=== PATIENT | female | born 1935 | race African-American/Black ===

== ENCOUNTER 2016-09-26 14:38 | Emergency (ER) | payer OTHER ==
[~2016-09-26] VITALS: Ht 162.6 cm; Wt 72.6 kg
--- NOTE | ~2016-09-26 | EKG ---
[place] [address] [address] [facility] [place] [address] ELECTROCARDIOGRAM REPORT Name: DHARMESH HENRIQUEZ [id number] Admission: 09/26/16 Attend Phys: Discharge: 09/26/16 Date of : 34 Report #: [id number] THIS REPORT FOR: //name// [facility] ED Test Date: 2016-09-26 Test Time: 15:25:46 Pat Name: DHARMESH HENRIQUEZ Department: Room: Gender: F Order Dispatcher Chief: MZOOK : 1935 Requested By: Fabiana Nava Order Number: [id number] MD: Iker Fam Measurements Intervals Whitney Rate: 71 P: 65 AL: 180 QRS: -3 QRSD: 106 T: 46 QT: 414 QTc: 450 Interpretive Statements Sinus rhythm Probable left atrial enlargement Low voltage, precordial leads Abnormal R-wave progression, early transition Left ventricular hypertrophy Artifact in lead(s) I,III,aVR,aVL,aVF Compared to ECG 12/22/2013 10:54:28 Low QRS voltage now present Left ventricular hypertrophy now present Electronically Signed On 10-01-2016 8:04:58 CDT by Iker Fam [email or web address] <ELECTRONICALLY SIGNED> By: Iker Fam MD 10/01/16 0804 1525 1525 Iker Fam MD /EPI
[~2016-09-26 14:38] MED LIST: AMLODIPINE BESYL5 MG PO; APAP500 PO; ASPIRIN81 M2 PO; ATIVAN0.5 MG PO; AUGMENTIN 875875 M1 PO; BABY OIL OTIC; BACTRIM DS TAB1 EACH PO; BAYER CHEWABLE81 MG PO; BETADINE30 ML; CELEBREX 200 M200 M1 PO; CELEBREX 200 M200 MG PO; CENTRUM SILVER1 EAC5 PO; CIPROFLOXACIN500 M1 PO; CLARITHROMYCIN250 M2 PO; CLARITIN10 MG PO; COLACE100 MG PO; CONSTULOSE10 GM/152 PO; COZAAR100 MG PO; DIFLUCAN PO; DIFLUCAN10 MG/ML PO; DIFLUCAN100 MG PO; DIFLUCAN150 MG PO; DITROPAN XL10 M1 PO; DOXYCYCLINE 10100 M1 PO; DOXYCYCLINE 10100 MG PO; FERROUS SULFAT325 M1 PO; FLEXERIL PO; GALZIN25 MG PO; GLUCAGEN1 M2 SUBQ; GLUMETZA1000 PO; HYDROCHLOROTH12.5 MG PO; HYDROCODON-ACE1 EAC5 PO; HYDROXYCHLOROQ200 M1 PO; HYZAAR 100-251 EACH PO; IRON325 PO; JANUVIA100 MG PO; JUVEN PACKET1 EACH PO; KEFLEX500 MG PO; LANTUS SUBQ; LORAZEPAM 0.50.5 MG PO; MIRALAX17 GM PO; MOBIC7.5 MG PO; MULTIVITAMINS PO; NEURONTIN 300300 M1 PO; NORVASC 5 MG TAB5 MG PO; NORVASC2.5 MG PO; NOVOLOG100 UNIT/1; NOVOLOG100 UNIT/1 SQ; NYSTATIN1 EA10; OMEPRAZOLE40 MG PO; ORAZINC220 MG PO; OXYCONTIN10 M1 PO; PHENERGAN 25 MG25 M1 PO; PREDNISONE 10 M10 M1 PO; PREDNISONE 5 MG5 M1 PO; PRENATAL PO; PROBIOTIC1 EAC2 PO; PROTONIX40 M2 PO; REMEDY CALAZIM113 GM; REMERON15 MG PO; SENNA CONCENTR8.6 MG PO; SULFASALAZINE500 M4 PO; SULFASALAZINE500 M5 PO; SULFAZINE EC500 MG PO; TOPROL XL50 MG PO; TRAMADOL HCL50 MG PO; TYLENOL325 MG PO; ULTRAM 50MG TAB50 MG PO; VANCOMYCIN HCL 11 G2 IVPB; VITAMINC500 PO; VOL-NATE TABLE1 EACH PO; ZANTAC 150MG T150 MG PO; ZINC GLUCONATE100 MG PO
[2016-09-26 15:12] LABS: ABSOLUTE NEUTROPHILS 5.3 thou/uL (1.4-8.2); BASOPHILS 0.6 % (0.0-2.0); HEMATOCRIT 43.8 % (37.0-47.0); HEMOGLOBIN 13.9 gm/dL (12.0-15.0); LYMPHOCYTES 17.8 % (24.0-44.0); MCH 25.6 pg (26.0-34.0); MCHC 31.8 g/dL (28.0-37.0); MCV 80.4 fL (80.0-100.0); MONOCYTES 8.1 % (1.0-8.0); PLATELET COUNT 185 thou/uL (150-400); POLYS 72.5 % (36.0-66.0); RBC 5.45 mil/uL (4.20-5.00); RDW 18.8 % (10.5-14.5); WBC 7.3 thou/uL (4.0-11.0)
[2016-09-26 15:13] LABS: MANUAL DIFF NO; URINE BILIRUBIN NEGATIVE (Negative); URINE BLOOD 1+ (Negative); URINE COLOR YELLOW; URINE GLUCOSE-RANDOM* NEGATIVE (Negative); URINE KETONES NEGATIVE (Negative); URINE NITRITE NEGATIVE (Negative); URINE PROTEIN (DIPSTICK) 2+ (Negative); URINE SPECIFIC GRAVITY 1.025 (1.003-1.035); URINE UROBILINOGEN 0.2 E.U./dl (0.2-1.0)
[2016-09-26 15:20] LABS: ANION GAP 8 mmol/L (7-16); BUN 27 mg/dL (7-18); CALCIUM 9.6 mg/dL (8.5-10.1); CHLORIDE 104 mmol/L (98-107); CO2 25 mmol/L (21-32); GLUCOSE 117 mg/dL (74-106); POTASSIUM 5.2 mmol/L (3.5-5.1); SODIUM 137 mmol/L (136-145)
[2016-09-26 15:24] LABS: SQUAMOUS 0-3 Few /LPF (0-3)
[2016-09-26 15:26] LABS: CASTS None Seen /LPF (None Seen); URINE WBC >25 Many /HPF (0-5)
[2016-09-26 15:27] LABS: ALBUMIN 3.2 g/dL (3.4-5.0); ALKALINE PHOSPHATASE 102 U/L (46-116); AMORPHOUS PHOSPHATES Many /LPF (None Seen); BACTERIA >30 Many /HPF (None Seen); SGOT 36 U/L (15-37); SGPT 39 U/L (30-65); TOTAL BILIRUBIN 0.5 mg/dL (<0.1-1.0); TOTAL PROTEIN 6.5 g/dL (6.4-8.2); TROPONIN-I < 0.04 ng/mL (<0.04-0.07)
[2016-09-26] MEDS ORDERED: PREDNISONE 5 MG5 M1 PO (16:07)
[2016-09-26] MEDS ORDERED: NORCO 5-325 TA1 EACH PO (16:14)
[2016-09-26] MEDS ORDERED: KEFLEX500 MG PO (16:30)
== END 2016-09-26 18:20 | disposition home or self-care (01) ==
LOC: ER 14:38
PROVIDERS: Nurse Practitioner Family
DX: R11.2 Nausea with vomiting, unspecified (principal); N39.0 Urinary tract infection, site not specified; M06.9 Rheumatoid arthritis, unspecified; I10 Essential (primary) hypertension; K21.9 Gastro-esophageal reflux disease without esophagitis; E11.8 Type 2 diabetes mellitus with unspecified complications; Z79.4 Long term (current) use of insulin; Z86.718 Personal history of other venous thrombosis and embolism; Z87.01 Personal history of pneumonia (recurrent); Z96.651 Presence of right artificial knee joint; Z98.890 Other specified postprocedural states

== ENCOUNTER 2017-07-03 05:25 | Observation (INO) | payer OTHER ==
[~2017-07-03] VITALS: Ht 157.5 cm; Wt 54.4 kg
--- NOTE | ~2017-07-03 | O ---
[facility] [place] [address] OPERATIVE REPORT Name: DHARMESH HENRIQUEZ Room #: 428-P [facility] Matilde Claros#: [id number] Admission: 07/03/17 Attend Phys: Logan Cassidy MD Discharge: 07/04/17 Date of : 34 Report #: [id number] THIS REPORT FOR: //name// CC: Kendall Cassidy DATE OF SERVICE: 07/03/2017 PREOPERATIVE DIAGNOSIS: Left second and third toe gangrene. POSTOPERATIVE DIAGNOSIS: Left second and third toe gangrene. PROCEDURE: Left second and third toe amputation. SURGEON: Logan Cassidy MD. FIG WASHER: Janay Cha PA-C. ANESTHESIA: LMA. ESTIMATED BLOOD LOSS: 25 mL. COMPLICATIONS: None. SPECIMENS: The second and third toe were sent to pathology. CONDITION UPON LEAVING THE OPERATING ROOM: Stable. INDICATIONS FOR PROCEDURE: The patient is an 82-year-old female who has had gangrenous changes of her left second and third toes. She has already had a previous fourth and fifth toe amputation and after discussion with her and wound care, the recommendation is for second and third toe amputation. DESCRIPTION OF PROCEDURE: Risks, benefits, alternatives, complications were discussed in detail with the patient including but not limited to risk of anesthesia, risk of damage to nerves, arteries, blood vessels, risk for infection, bleeding, risk for further infection and need for higher level amputation. Informed consent was obtained from the patient. Left foot was appropriately marked in the preoperative holding area. She was brought to the operating room and a general endotracheal anesthesia was induced. Left lower extremity was prepped and draped in normal sterile fashion. Timeout was performed properly identifying the patient and procedure as well as the instrumentation. All in the operating room were in agreement. An incision circumferentially around the base of the second and third toe was then made with a 10 blade through the skin down to the bone itself. Bone was then dissected out from the surrounding tissues with 15 blade and the second and third toe [address] [address] OPERATIVE REPORT Name: DHARMESH HENRIQUEZ Room #: 428-P [facility] Matilde Claros#: [id number] Admission: 07/03/17 Attend Phys: Logan Cassidy MD Discharge: 07/04/17 Date of : 34 Report #: [id number] including the proximal phalanx were removed at the DIP joints. This was then thoroughly irrigated with normal saline. Skin was closed with 3-0 nylon. Soft dressing of Adaptic, 4 x 4, Webril, Nathan wrap were applied. The patient tolerated this procedure well and went to the recovery room under the care of anesthesia postoperatively. <ELECTRONICALLY SIGNED> By: Logan Cassidy MD 07/11/17 0735 1322 1355 Logan Cassidy MD /nt
--- NOTE | ~2017-07-03 | S ---
[facility] [place] [address] SURGICAL PATH RPT PROCEDURE Name: DHARMESH HENRIQUEZ Room #: 428-P [facility] Matilde Claros#: [id number] Admission: 07/03/17 Date of : 34 Discharge: 07/04/17 Report #: [id number] Path Case #: [id number] PATHOLOGY REPORT COLLECTION DATE: 07/03/2017 RECEIVED DATE: 07/03/2017 SUBMITTING PHYS: Dr. Logan Cassidy OTHER PHYS: Dr.Mark Miller SPECIMEN(S) RECEIVED: A.Left second and third toes * * * * * * * * * * * * FINAL DIAGNOSIS: Left second and third toes, amputation: - Ulceration along with marked acute inflammation extending into underlying bone associated with acute osteomyelitis, as well as bone destruction. - Bone margins showing unremarkable and viable bone. (IUV:suzy; 07/05/2017) PATHOLOGIST: Yi Villar M.D. REPORT ELECTRONICALLY SIGNED BY: Yi Villar M.D. DATE/TIME: 07/05/2017 14:05 * * * * * * * * * * * * GROSS PATHOLOGY: Received in formalin labeled "Dharmesh Henriquez, left second and third toes," are two toe amputation specimens measuring 4.8 x 2.6 x 1.8 cm and 4.9 x 2.0 x 1.7 cm in greatest dimensions. Both specimens display a smooth and concave proximal bone margin, consistent with disarticulation. Both specimens also display a nail in the nailbed that is partially opaque and yellow-singh in appearance. The larger specimen displays a well-circumscribed, ulcerative and dark singh-brown lesion on the dorsal aspect measuring 1.7 x 1.1 cm that extends to within 0.8 cm of the soft tissue margin; the bone and soft tissue margins are inked black. A full-thickness cross section is submitted proximal to distal in cassettes A1 through A3 following decalcification. The smaller specimen displays a well-circumscribed, ulcerated and singh-brown lesion on the lateral aspect measuring 0.7 x 0.4 cm that extends to within 1.2 cm of the soft tissue margin; the bone and soft tissue margins are inked red. A full-thickness cross section is submitted proximal to distal in cassettes A4 and A5 following decalcification, with sales representative marine supplies tissue from the ulcerative lesion submitted in cassette A6. ([facility]; 07/04/2017) [facility] [place] [address] SURGICAL PATH RPT PROCEDURE Name: DHARMESH HENRIQUEZ Room #: 428-P [facility] Matilde Claros#: [id number] Admission: 07/03/17 Date of : 34 Discharge: 07/04/17 Report #: [id number] Path Case #: [id number] CLINICAL HISTORY: Gangrene left foot INITIAL CPT CODE(S): A; 19452, 63290 Professional services performed by [facility] at [facility] [address] [place] [address] Technical services performed by [facility] at [address] [place] [address], [address], [place] [address]. [facility] [address] [place] [address] PHONE: [phone] DIRECTOR: Yannick Guevara M.D. * * * END OF REPORT * * *
[~2017-07-03 05:25] MED LIST changes: +CALMOSEPTINE O3.5 GM TOP; +DITROPAN XL5 M1 PO; +LIORESAL 10 MG10 MG PO; +METFORMIN HCL500 MG PO; +NORCO 5-325 TA1 EACH PO; -NOVOLOG100 UNIT/1; +NOVOLOG100 UNIT/1 SUBQ; -REMEDY CALAZIM113 GM; +[UNRECOGNIZED DRUG - OTHER] TOP
[2017-07-03 11:15] LABS: CALCIUM 9.3 mg/dL (8.5-10.1); CREATININE 0.9 mg/dL (0.6-1.0)
[2017-07-03 11:30] VITALS: BP 175/89
[2017-07-03 15:45] VITALS: BP 116/85
[2017-07-03 15:49] VITALS: BP 116/85
[2017-07-03 21:00] VITALS: BP 140/62
[2017-07-04 04:30] VITALS: BP 129/54
[2017-07-04 07:18] VITALS: BP 156/115
[2018-01-27] MEDS ORDERED: FLUCONAZOLE 10100 MG PO (23:41)
[2018-01-27] MEDS ORDERED: FIRVANQ50 MG/1 ML PO (23:41)
[2018-01-27] MEDS ORDERED: BACLOFEN 10 MG Table PO (23:42)
[2018-01-27] MEDS ORDERED: ENOXAPARIN40 MG/0.1 SUBQ (23:42)
[2018-01-27] MEDS ORDERED: METOPROLOL SUCC50 MG PO (23:42)
[2018-01-27] MEDS ORDERED: AMLODIPINE BESYLATE PO (23:43)
[2018-01-27] MEDS ORDERED: TRAMADOL 50 MG PO (23:43)
[2018-01-27] MEDS ORDERED: REMERON 15 MG PO (23:44)
[2018-01-27] MEDS ORDERED: HYDROCODONE APAP PO (23:44)
[2018-01-27] MEDS ORDERED: Tylenol 325MG Caplet PO (23:44)
[2018-01-27] MEDS ORDERED: DEXTROSE 500.5 GM/M1 IV PUSH ×2 (23:45→23:46)
[2018-01-27] MEDS ORDERED: FLUSH IV PUSH (23:45)
[2018-01-27] MEDS ORDERED: GLUCOSE4 GM PO (23:46)
[2018-01-27] MEDS ORDERED: GLUTOSE GEL 1515 G1 PO (23:46)
[2018-01-27] MEDS ORDERED: FLORANEX GRANU1 EACH PO (23:47)
[2018-01-27] MEDS ORDERED: SENNA8.6 MG PO (23:47)
[2018-01-27] MEDS ORDERED: Prednisone 5 MG TAB PO (23:47)
[2018-01-27] MEDS ORDERED: PEPCID20 MG PO (23:47)
[2018-01-27] MEDS ORDERED: METFORMIN 500 MG PO (23:48)
[2018-01-27] MEDS ORDERED: NOVOLOG100 UNIT/1 SUBQ (23:48)
[2018-01-27] MEDS ORDERED: GLUCAGEN1 MG/1 ML SUBQ (23:48)
[2018-01-27] MEDS ORDERED: CERTAGEN SENIOR PO (23:49)
== END 2017-07-04 13:00 ==
LOC: 4E 05:25 → TBA 05:25 → PRE 11:41 → 4E 15:35 → PRE 15:44 → 4E 07-04 13:00
PROVIDERS: Orthopaedic Surgery
DX: I96 Gangrene, not elsewhere classified (principal); L98.499 Non-pressure chronic ulcer of skin of other sites with unspecified severity; Z96.659 Presence of unspecified artificial knee joint; M86.10 Other acute osteomyelitis, unspecified site; L97.509 Non-pressure chronic ulcer of other part of unspecified foot with unspecified severity; T84.50XA Infection and inflammatory reaction due to unspecified internal joint prosthesis, initial encounter; Y92.89 Other specified places as the place of occurrence of the external cause

== ENCOUNTER 2019-03-19 14:47 | Inpatient (IN) | payer OTHER ==
[~2019-03-19] VITALS: Ht 167.6 cm; Wt 54.0 kg
[~2019-03-19 14:47] MED LIST changes: +AMLODIPINE BESYLATE PO; +BACLOFEN 10 MG Table PO; +CERTAGEN SENIOR PO; +DEXTROSE 500.5 GM/M1 IV PUSH; +ENOXAPARIN40 MG/0.1 SUBQ; +FIRVANQ50 MG/1 ML PO; +FLORANEX GRANU1 EACH PO; +FLUCONAZOLE 10100 MG PO; +FLUSH IV PUSH; +GLUCAGEN1 MG/1 ML SUBQ; +GLUCOSE4 GM PO; +GLUTOSE GEL 1515 G1 PO; +HYDROCODONE APAP PO; +METFORMIN 500 MG PO; +METOPROLOL SUCC50 MG PO; +PEPCID20 MG PO; +Prednisone 5 MG TAB PO; +REMERON 15 MG PO; +SENNA8.6 MG PO; +TRAMADOL 50 MG PO; +Tylenol 325MG Caplet PO
[2019-03-19 14:49] VITALS: BP 144/87
[2019-03-19 17:21] LABS: ABSOLUTE NEUTROPHILS 6.6 thou/uL (1.4-8.2); BASOPHILS 0.6 % (0.0-2.0); EOSINOPHILS 0.2 % (0.0-3.0); HEMOGLOBIN 10.1 gm/dL (12.0-15.0); LYMPHOCYTES 10.7 % (24.0-44.0); MCH 24.4 pg (26.0-34.0); MCHC 31.4 g/dL (28.0-37.0); MCV 77.7 fL (80.0-100.0); MONOCYTES 4.4 % (1.0-8.0); PLATELET COUNT 173 thou/uL (150-400); POLYS 84.1 % (36.0-66.0); RBC 4.12 mil/uL (4.20-5.00); RDW 21.1 % (10.5-14.5); WBC 7.8 thou/uL (4.0-11.0)
[2019-03-19 17:29] LABS: CALCIUM 9.4 mg/dL (8.5-10.1); POTASSIUM 5.9 mmol/L (3.5-5.1)
[2019-03-19 17:33] LABS: URINE BILIRUBIN NEGATIVE (Negative); URINE BLOOD 3+ (Negative); URINE CLARITY SL CLOUDY; URINE COLOR YELLOW; URINE GLUCOSE-RANDOM* NEGATIVE (Negative); URINE KETONES NEGATIVE (Negative); URINE PROTEIN (DIPSTICK) 2+ (Negative); URINE UROBILINOGEN 0.2 E.U./dl (0.2-1.0)
[2019-03-19 17:34] LABS: URINE LEUKOCYTES-REFLEX 2+ (Negative); URINE NITRITE-REFLEX POSITIVE (Negative)
[2019-03-19 17:35] LABS: TOTAL BILIRUBIN 0.3 mg/dL (<0.1-1.0); TOTAL PROTEIN 6.8 g/dL (6.4-8.2)
[2019-03-19 18:05] LABS: CASTS None Seen /LPF (None Seen); SQUAMOUS 0-3 Few /LPF (0-3)
[2019-03-19 18:06] LABS: TRIPLE PHOSPHATE CRYSTALS >10 Many /LPF (None Seen); WBC CLUMPS Few (None Seen)
[2019-03-19 20:06] LABS: ANISOCYTOSIS 1+; OVALOCYTES OCCASIONAL; POLYCHROMASIA OCCASIONAL
[2019-03-19] MEDS ORDERED: REMERON15 M2 PO (21:14)
[2019-03-19] MEDS ORDERED: CARDURA2 MG PO (21:16)
[2019-03-19] MEDS ORDERED: LOPERAMIDE2 MG PO (21:17)
[2019-03-19] MEDS ORDERED: PAIN RELIEVER325 MG PO (21:18)
[2019-03-19] MEDS ORDERED: GLUCOPHAGE XR500 M1 PO (21:19)
[2019-03-19] MEDS ORDERED: RAYOS5 MG PO ×2 (21:21→21:22)
[2019-03-19] MEDS ORDERED: CENTRUM SILVER1 EAC6 PO (21:23)
[2019-03-19 21:25] VITALS: BP 157/73
[2019-03-19 23:46] VITALS: BP 173/73
[2019-03-20 00:55] VITALS: BP 173/73
[2019-03-20 01:00] VITALS: BP 144/80
[2019-03-20 06:01] VITALS: BP 156/83
[2019-03-20 08:05] VITALS: BP 152/72
--- NOTE | 2019-03-20 08:16 | NUR ---
PT ADMITTED TO ROOM 460 FROM ED BEING ADMITTED WITH UTI. IVF'S INFUSING UPON ARRIVAL ORDERS REVIEWED AND IMPLEMENTED. PT ORIOENTED TO ROOM CALL LIGHT AND POC. NOTIFIED OF ADMISSION.
--- NOTE | 2019-03-20 14:02 | NUR ---
DISCHARGE PLANNING. PATIENT ADMITTED FROM [facility]. PLAN IS FOR PATIENT TO RETURN TO [facility] ONCE MEDICALLY CLEARED. CLINICAL INFORMATION FAXED TO [facility]. CALL PLACED TO KARINA TO NOTIFY. ANTICIPATED DISCHARGE IS PLANNED FOR THE BEGINNING OF NEXT WEEK. FOLLOWING.
[2019-03-20 15:30] VITALS: BP 141/55
[2019-03-20 19:22] VITALS: BP 138/50
--- NOTE | 2019-03-20 20:06 | NUR ---
PT A&OX4, VSS STABLE, DENIES PAIN AND SOA. NO SIGNS OF DISTRESS. WILL CONTINUE TO MONITOR.
--- NOTE | 2019-03-21 08:04 | NUR ---
PROGRESS PT A/O X4 DENIES PAIN, IVF'S INFUSING ORDERED TOLERATING DIET ACCUCHECKS CONTINUE PT ABLE TO ASSIST IN REPOSITIONING. IGLESIAS CATHETER IN PLACE DRAINING MODERATE AMOUNT OF LIGHT YELLOW URINE.
[2019-03-21 16:29] VITALS: BP 145/65
--- NOTE | 2019-03-21 18:07 | NUR ---
AAOX4 PLEASANT AND COOPERATIVE. TURNED EVERY TWO HOURS. VOIDS PER BEDPAN. NO C/O PAIN. STOOL SENT FOR C-DIFF. IV RIGHT FOREARM. FAMILY INTO VISIT. GOOD APPETITE. REMAINS IN ISOLATION UNTIL C-DIFF IS BACK.
[2019-03-22 08:41] VITALS: BP 187/66
[2019-03-22 08:56] VITALS: BP 158/72
--- NOTE | 2019-03-22 08:59 | NUR ---
progress pt a/o x4 denies pain. iv antibiotics and ivf's administered as ordered, repositioned frequently, dresssings intact to right buttock and right stump. slept most of shift continue poc.
--- NOTE | 2019-03-22 11:13 | EKG ---
[address] [address] ELECTROCARDIOGRAM REPORT Name: DHAREMSH HENRIQUEZ Room #: 460-P ADM IN M.R.#: [id number] Admission: 03/19/19 Attend Phys: Kendall Miller MD Discharge: Date of : 34 Report #: [id number] THIS REPORT FOR: //name// [facility] ED Test Date: 2019-03-20 Test Time: 00:35:24 Pat Name: DHARMESH HENRIQUEZ Department: Room: [facility] Gender: F Dealmaker: TORI : 1935 Requested By: Kendall Miller Order Number: [id number] MD: Iker Fam Measurements Intervals [place] Rate: 100 P: 59 IN: 198 QRS: -17 QRSD: 83 T: 28 QT: 337 QTc: 435 Interpretive Statements Sinus tachycardia Inferior infarct, old Compared to ECG 01/23/2018 16:50:35 Myocardial infarct finding now present Sinus rhythm no longer present Electronically Signed On 03-22-2019 11:13:20 RACETRACK STEWARD by Iker Fam [email or web address] <ELECTRONICALLY SIGNED> By: Iker Fam MD 03/22/19 1113 0035 0035 Iker Fam MD /ABBY
[2019-03-22 17:02] VITALS: BP 134/53
--- NOTE | 2019-03-22 17:16 | NUR ---
Assumed pt care this am, Fc in place, patent drainig light yellow urine. Pt has 2 bowel movements, bed bath and ren care done. Stool sample sent down to the lab. Isolation maintained, though MRSA is negative awaiting results for c-diff. BLE amputation, but is able to help turn herself when needed. Right arm is contracted and as per the pt "its of little use so my left hand is the one I use." Plate set up is needed and food chopped up to smaller pieces, pt is able to feed herself, Drinks need to have a straw. POC followed, no signs or verbalizations of distress have been noted. Barrier cream placed on the buttocks areaa.
[2019-03-22 20:04] VITALS: BP 145/65
--- NOTE | 2019-03-23 04:31 | NUR ---
NO OVERNIGHT EVENTS. PT. VERY SLEEPY THROUGH SHIFT. EASILY AROUSABLE, BUT COULD NOT STAY AWAKE LONG ENOUGH TO TAKE ORAL MEDICATIONS. ASSESSMENT CHARTED. CONTINUE TO FOLLOW POC. WILL CONTINUE TO MONITOR.
[2019-03-23 05:47] LABS: HEMATOCRIT 28.4 % (37.0-47.0); MCHC 31.8 g/dL (28.0-37.0); MCV 78.5 fL (80.0-100.0); RBC 3.62 mil/uL (4.20-5.00); RDW 21.3 % (10.5-14.5); WBC 5.3 thou/uL (4.0-11.0)
[2019-03-23 06:11] LABS: CALCIUM 8.6 mg/dL (8.5-10.1); CREATININE 0.8 mg/dL (0.6-1.0); POTASSIUM 3.5 mmol/L (3.5-5.1)
[2019-03-23 08:02] VITALS: BP 152/61
--- NOTE | 2019-03-23 13:16 | NUR ---
MARYBEL reviewed chart and spoke with nursing. Pt remains on IV abx. Pt is currently in isolation for possible c.diff. Discharge plan is for pt to return to [facility] when medically stable. cyber ops planner to fax updates to [facility] for review. MARYBEL spoke with pt's son, Johny, via phone to provide update. Johny confirms plan for pt to return to [facility] when medically stable. MARYBEL is following to assist as needed with discharge planning.
[2019-03-23 15:20] VITALS: BP 142/70
--- NOTE | 2019-03-23 20:21 | NUR ---
PT A&OX4, VSS, DENIES PAIN. SHARON CARE GIVEN AND PATIENT TURNED OFTEN. BED BATH GIVEN. PLAN IS TO GO BACK TO SNF. NO SIGNS OF DISTRESS. WILL CONTINUE TO MONITOR.
[2019-03-23 21:25] VITALS: BP 138/72
--- NOTE | 2019-03-24 04:32 | NUR ---
assumed care of pt @1915. pt a&ox4. bilat BKA. pt denies pain ,n/v. pt is a setup for meals. erythema to bottom. barrier cream applied and [id number]. chronic alegria in place and patent. pt had a restful night. no s/s of distress. call kaur within reach. staff anticipates pt needs. fall prec in place. pt was negative for MRSA and cdiff. isolation d/c. will cont to monitor
--- NOTE | 2019-03-24 08:13 | H ---
[facility] [address] [place] [address] HISTORY AND PHYSICAL Name: DHARMESH HENRIQUEZ Room #: 460-P ADM IN M.R.#: [id number] Admission: 03/19/19 Attend Phys: Kendall Miller MD Discharge: Date of : 34 Report #: [id number] THIS REPORT FOR: //name// CC: [facility] Kendall Miller DATE OF SERVICE: 03/19/2019 CHIEF COMPLAINT: Strain. HISTORY OF PRESENT ILLNESS: The patient is an 83-year-old -[place] female, resident of [facility] who began complaining of symptoms of "strain", particularly in her abdomen, but all over her body and caused significant discomfort. She has also had recently episodes of hematuria and was diagnosed with a urinary tract infection and treated with antibiotics a couple of weeks ago and appears to have recurrence of urinary tract symptoms at present. She reports she had blood in her urine about 2 weeks ago and again last night and today. What she had today, she describes it as being minimal. PAST MEDICAL HISTORY: Extensive and includes rheumatoid arthritis and peripheral vascular disease, which ultimately led to bilateral lower extremity amputations. She is bedridden for several years at least. She has had urinary tract infection in the past. 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 She has type 2 diabetes. She has gastroesophageal reflux disease. 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 She has had pneumonia in the past. She has a neurogenic bladder with history of bladder retention and had a Rice catheter placed. She has essential hypertension. ALLERGIES: She has no known drug allergies. CURRENT MEDICATIONS: List includes baclofen 10 mg by mouth nightly, metoprolol succinate 100 mg by mouth daily for hypertension, amlodipine 5 mg by mouth daily for hypertension, tramadol p.r.n. pain, Tylenol p.r.n. pain, Remeron 15 mg nightly, senna at bedtime, Pepcid daily. She is on chronic prednisone 5 mg by mouth twice daily, metformin 500 mg by mouth daily and a multivitamin daily. She gets baby oil drops in her ears on Wednesdays, menthol and zinc oxide ointment where needed and Ditropan XL 5 mg by mouth daily for urinary frequency. FAMILY HISTORY: Noncontributory. SOCIAL HISTORY: She is a [facility] resident as described above. She has no vices. She has had rheumatoid arthritis at least 30 years. She has no history of stroke or coronary artery disease. REVIEW OF SYSTEMS: Other than the sensation of straining in her abdomen, which [address] [address] HISTORY AND PHYSICAL Name: DHARMESH HENRIQUEZ Room #: 460-P [facility] IN M.R.#: [id number] Admission: 03/19/19 Attend Phys: Kendall Miller MD Discharge: Date of : 34 Report #: [id number] I suspect might be tenesmus, the patient denies any new pains recently. She does have multiple chronic pains including in her back, neck, shoulders and elbows. She has very severe degenerative disease and both hips have had hip replacement surgeries in the remote past. No fever, but she has noted some sweats recently with the episodes of straining. She has some occasional episodes of vomiting. No shortness of breath or chest pain. PHYSICAL EXAMINATION: VITAL SIGNS: In the Emergency Room, pulse 110, respirations 16, oxygen saturation 97% on room air, temperature is 36.8 degrees centigrade, and blood pressure is 144/87. Weight was not recorded. GENERAL: The patient is a very pleasant elderly -[place]ib[place] female, in no distress at the time of my exam. HEENT: The extraocular muscles are intact. Her vision is poor for macular degeneration, I believe. The sinuses are nontender. Hearing is grossly normal. The oropharynx is moist and pink. She is edentulous. NECK: Without adenopathy or thyromegaly or mass or significant bruit. LUNGS: Clear bilaterally. CARDIOVASCULAR: Reveals a distant but regular rhythm with a grade 2/6 systolic murmur. ABDOMEN: Soft. Bowel sounds are present, no visceromegaly or masses. In particular, there is no left lower quadrant tenderness. There is no right upper quadrant tenderness (The nurse at the [facility] with whom I spoke earlier today felt that she might have some right upper quadrant tenderness, but I could not reproduce on exam today). EXTREMITIES: Upper extremities, she has marked degenerative changes in her elbows and chronic rheumatoid changes in her hands and generalized weakness and apparent rotator cuff tears chronically on both sides, is unable to raise her arms above her shoulders. She has bilateral lower extremity above the knee amputations. The skin looks remarkably intact. NEUROLOGIC: Mental status: The patient is alert. She is oriented to person and place, not time. She has no hallucinations or delusions. Cranial nerves 2-12 except for hearing loss, otherwise intact. Cerebellar was not tested. No focal deficits of sensation noted on gross exam today. She has generalized motor weakness, perhaps 4+/5 for her trunk. Her upper extremities have remarkably good strength as long as her rotator cuff muscles are not assessed. 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 LABORATORY DATA: Chemistry: Sodium 138, potassium 5.9 (this was repeated after the specimen was found to be hemolyzed and was 4.5 actually), chloride 103, bicarbonate of 25, BUN of 20, creatinine 1.0, anion gap is normal at 10 and the estimated GFR 64, nonfasting glucose of 235, calcium of 9.4. Total bilirubin of 0.3, AST of 30, ALT of 23, alkaline phosphatase 95, total protein of 6.8 with an albumin of 3.0 and lipase level was done and it was normal at 70. The CBC showed a white blood cell count that was not elevated at 7800 with a [facility] [address] [place] [address] HISTORY AND PHYSICAL Name: DHARMESH HENRIQUEZ Room #: 460- ADM IN ..#: [id number] Admission: 03/19/19 Attend Phys: Kendall Miller MD Discharge: Date of : 34 Report #: [id number] differential showing 84.1% segs, 10.7% monocytes, 0.2% eosinophils, 0.6% basophils and an ANC of 6600. The hemoglobin was low at 10.1, this is stable and chronic for her; hematocrit of 32.0; MCV of 77.7 and RDW elevated at 21.1. The smear showed some anisocytosis and occasional ovalocytes. Urinalysis was a clean catch that looks slightly cloudy with a pH of 8.5, specific gravity of 1.010. She had 2+ proteins, 3+ blood and tested positive for urine nitrite and negative for urine bilirubin and 2+ positive on the dipstick for leukocyte esterase. Microscopic exam showed 11-20 red blood cells per high power field, which is significantly elevated; 16-25 white blood cells per high power field, this was also significantly elevated. A few white blood cell clumps were seen. Greater than 10 triple phosphate crystals per low power field were seen, and 10-30 bacteria per high power field with no casts. Epithelial cells were 0-3 and considered few and okay. Urine culture is pending. RADIOGRAPHIC EVALUATION IN THE EMERGENCY ROOM: Chest x-ray showed a right basilar partial consolidative area of presumed atelectasis versus possible infiltration and a right hemidiaphragmatic elevation, severe bilateral glenohumeral osteoarthrosis with suspected chronic full thickness rotator cuff tears. CT scan is done of the abdomen and pelvis because of the tenesmus and episodes of sweating and the patient was found to have diffuse mural thickening of the bladder wall, possibly consistent with chronic cystitis. There was a small indirect inguinal hernia on the left side, which contained fat; multiple calcified fibroids; coronary artery calcifications and a small pericardial effusion were noted and right basilar subsegmental atelectasis with right hemidiaphragmatic elevation also noted. The patient was given a dose of ceftriaxone in the Emergency Room. I did discuss the case at some length with the physician's statistical assistant, Key. ASSESSMENT AND PLAN: 1. Apparent chronic cystitis with hematuria and urinary retention - the patient has a Rice catheter placed, injectable IV antibiotics started. I do not think she needs to be taking the oxybutynin anymore. We will discontinue that given the appearance of her bladder on CT as well as the bleeding and apparent tenesmus. We will treat aggressively with IV antibiotics and IV fluids. If the bleeding problems persist, it may be well to have a Urological evaluation after she is discharged. Significantly, no evidence of pelvic masses other than the uterine fibroids were noted. 2. Severe rheumatoid arthritis. 3. Hypertension. 4. Marked general debility. [facility] [address] [place] [address] HISTORY AND PHYSICAL Name: DHARMESH HENRIQUEZ Room #: 460-P ADM IN M.R.#: [id number] Admission: 03/19/19 Attend Phys: Kendall Miller MD Discharge: Date of : 34 Report #: [id number] 5. Gastroesophageal reflux. 6. Prior bilateral lower extremity amputations. <ELECTRONICALLY SIGNED> By: Kendall Miller MD 03/24/19 0813 2149 2237 Kendall Miller MD /nt
[2019-03-24 08:34] VITALS: BP 133/54
[2019-03-24 09:50] LABS: ABSOLUTE NEUTROPHILS 4.2 thou/uL (1.4-8.2); BASOPHILS 0.5 % (0.0-2.0); EOSINOPHILS 2.7 % (0.0-3.0); HEMATOCRIT 29.6 % (37.0-47.0); HEMOGLOBIN 9.2 gm/dL (12.0-15.0); LYMPHOCYTES 17.9 % (24.0-44.0); MCH 24.5 pg (26.0-34.0); MCHC 31.2 g/dL (28.0-37.0); MCV 78.6 fL (80.0-100.0); MONOCYTES 10.4 % (1.0-8.0); PLATELET COUNT 145 thou/uL (150-400); POLYS 68.5 % (36.0-66.0); RBC 3.76 mil/uL (4.20-5.00); RDW 21.1 % (10.5-14.5); WBC 6.2 thou/uL (4.0-11.0)
[2019-03-24 09:55] LABS: BE(vivo) -2.6 mmol/L (-2 to +3); HCO3 21.4 mmol/L (22.0-26.0); PCO2 34.2 mmHg (35.0-45.0); PO2 80.3 mmHg (80.0-100.0); pH 7.415 (7.360-7.450); sO2 96.1 % (92.0-98.0)
[2019-03-24 10:00] LABS: ANION GAP 8 mmol/L (7-16); BUN 18 mg/dL (7-18); CALCIUM 9.4 mg/dL (8.5-10.1); CHLORIDE 112 mmol/L (98-107); CO2 24 mmol/L (21-32); CREATININE 0.8 mg/dL (0.6-1.0); GLUCOSE 95 mg/dL (74-106); POTASSIUM 3.3 mmol/L (3.5-5.1); SODIUM 144 mmol/L (136-145)
[2019-03-24 10:06] LABS: ALBUMIN 2.6 g/dL (3.4-5.0); DIRECT BILIRUBIN < 0.1 mg/dL (<0.1-0.3); SGOT 19 U/L (15-37); SGPT 32 U/L (30-65); TOTAL BILIRUBIN 0.3 mg/dL (<0.1-1.0); TOTAL PROTEIN 5.8 g/dL (6.4-8.2)
[2019-03-24 15:37] VITALS: BP 142/57
[2019-03-24 19:10] VITALS: BP 130/61
--- NOTE | 2019-03-24 19:43 | NUR ---
Assumed pt care this am, pt is bed bound but able to turn and repostion when needed. FC patent drainging light yellow urine. Pericare given when needed duringthe day. Meal tray set up required d/t/ right hand contractures. Seen by Dr. Miller this am, pt was not her normal self and did not respond to the MD. Diagnostics ordered and done through out the day. Pt was alert mid morning and stated that she hear everything he heard but could not wake up to respond, pt also stated this has happened before, advisewd Dr. Miller of this statement. For possible dc if stable. No signs or verbalizations of distress have been noted. Fall precautions in place, POC followed.
--- NOTE | 2019-03-25 03:57 | NUR ---
ASSUMED CARE OF PT AT 1900HRS. PT IS AOX4 AND LETS NEEDS BE KNOWN. FALL PRECAUTION IN PLACE. PT ABLE TO TURN SELF NEED. IGLESIAS CATH IN PLACE AND PATIENT. PT DENIED PAIN, NAUSEA AND DIARRHEA. PT WAS ABLE TO GET COMFORTABLE AND SLEEP PART OF THE SHIFT. VSS AND NO S/S OF ACUTE DISTRESS. WILL CONTINUE TO MONITOR.
[2019-03-25 07:58] VITALS: BP 172/64
[2019-03-25] MEDS ORDERED: CIPRO500 MG PO (09:44)
[2019-03-25] MEDS ORDERED: FLAGYL 250 MG250 MG PO (09:45)
[2019-03-25] MEDS ORDERED: K-DUR 20 MEQ T20 MEQ PO (09:48)
[2019-03-25] MEDS ORDERED: MIRALAX17 GM PO (09:49)
[2019-03-25 09:57] LABS: MAGNESIUM 1.8 mg/dL (1.8-2.4); POTASSIUM 3.5 mmol/L (3.5-5.1)
--- NOTE | 2019-03-25 10:49 | NUR ---
PT A&OX4, VSS, DENIES PAIN. PATIENT TURNED Q2 HOURS. SHARON CARE/IGLESIAS CARE COMPLETED. ANTIBIOTIC HUNG ORDERED. PATIENT DENIES N/V. NO SIGNS OF DISTRESS. WILL CONTINUE TO MONITOR.
[2019-03-25 11:53] VITALS: BP 144/55
[2019-03-25 14:26] VITALS: BP 143/65
--- NOTE | 2019-04-02 09:19 | D ---
[facility] [address] [place] [address] DISCHARGE SUMMARY Name: DHARMESH HENRIQUEZ Room #: 460-P [facility] IN M.R.#: [id number] Admission: 03/19/19 Attend Phys: Kendall Miller MD Discharge: 03/25/19 Date of : 33 Report #: [id number] THIS REPORT FOR: //name// CC: [facility] Kendall Miller DATE OF SERVICE: 03/25/2019 HOSPITAL COURSE: The patient was admitted with abdominal discomfort that she described as an abdominal straining. She was subsequently diagnosed with colitis, not otherwise specified. It was felt she might have Clostridium difficile or some other pathogen that could be cultured, but studies came back negative and the patient was treated empirically with intravenous ciprofloxacin and metronidazole during her hospital stay. On the date of anticipated discharge, March 24, the patient was suddenly unable to communicate, prompting a workup for possible stroke. She is normally alert, oriented and verbally appropriate and is able to think clearly. However, on that date, she was barely arousable, and these symptoms persisted for a few hours in the morning and resolved spontaneously. A CT scan of the head was done to look for acute infarct or bleed or other catastrophe and no such finding was made. Lab tests including CBC, chemistry, etc. were essentially benign with the exception of slightly low blood albumin and a low potassium at 3.3. The following day, the date of her actual discharge, I spoke with the patient about this episode and she told me that it had happened previously and at least once in the last couple of years at the care home where she currently resides. In particular, she was able to tell me the things that I had spoken with her about when she was in this diminished capacity. She could not move. She could not open her eyes much or respond, but she was aware of everything going on around her and then it subsequently disappeared and there was no residual neurologic deficits. When it happened before the situation was much the same, with her being able to recognize people who were around her and speaking and being able to recall what they said to her. 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 I explained the diagnosis and the precipitating factors that might cause this. In particular, she needs to be careful with excessively high carbohydrate meals, but in this case, she had not had anything to eat that morning and was unaware of any other inciting factors at that time. The patient is being discharged back to [facility] on the following medication regimen. She will take Cipro 500 mg by mouth twice a day for 8 days and metronidazole 250 mg by mouth 4 times daily for the next 8 days. She will continue using Calmoseptine topically every 8 hours for any wounds, of which she [address] [address] DISCHARGE SUMMARY Name: DHARMESH HENRIQUEZ Room #: 460-P [facility] IN M.R.#: [id number] Admission: 03/19/19 Attend Phys: Kendall Miller MD Discharge: 03/25/19 Date of : 33 Report #: [id number] is at high risk for developing because of her bedbound status after bilateral [id number] amputations. She has a baby oil for her ears on Wednesdays to help prevent ceruminosis. Baclofen 10 mg by mouth nightly for spasms, metoprolol succinate 100 mg by mouth daily in the morning, amlodipine 5 mg by mouth every morning, tramadol 50 mg 2 tablets by mouth 3 times daily p.r.n. pain, famotidine 20 mg by mouth daily in the morning, mirtazapine 15 mg by mouth nightly, doxazosin 2 mg by mouth daily, loperamide 2 mg by mouth twice daily p.r.n. loose stools, acetaminophen 650 mg by mouth every 4 hours p.r.n. pain or fever, metformin hydrochloride 500 mg by mouth twice daily, prednisone 5 mg every morning and 2.5 mg every evening and a multivitamin daily. She will also take potassium chloride 20 mEq by mouth daily and is started on MiraLax 17 grams by mouth daily. She has a p.r.n. dose of senna for constipation that is not responsive to the daily dose of MiraLax. DISCHARGE DIAGNOSES: As follows: 1. Colitis, of uncertain type, probably infectious. 2. Hypokalemic periodic paralysis. 3. Hypokalemia. 4. Severe chronic rheumatoid arthritis. 5. Hypertension. 6. Type 2 diabetes mellitus. 7. Peripheral arterial disease. 8. Constipation. 9. Prior bilateral anmrp-bbe-ixod amputations. 10. Osteoarthritis, generalized. 11. Gastroesophageal reflux disease. <ELECTRONICALLY SIGNED> By: Kendall Miller MD 04/02/19 0919 [id number] 1230 Kendall Miller MD /nt
== END 2019-03-25 16:39 | DRG 690 ==
LOC: ER 14:47 → 4W 18:36 → EROBS 18:36 → 4W 03-20 01:00
PROVIDERS: Internal Medicine; Physician Assistant; ADMIT Internal Medicine
DX: N30.21 Other chronic cystitis with hematuria (principal); M06.9 Rheumatoid arthritis, unspecified; G72.3 Periodic paralysis; Z96.651 Presence of right artificial knee joint; I10 Essential (primary) hypertension; R33.9 Retention of urine, unspecified; E87.6 Hypokalemia; E11.51 Type 2 diabetes mellitus with diabetic peripheral angiopathy without gangrene; K59.00 Constipation, unspecified; N31.9 Neuromuscular dysfunction of bladder, unspecified; K21.9 Gastro-esophageal reflux disease without esophagitis; K52.9 Noninfective gastroenteritis and colitis, unspecified; Z79.84 Long term (current) use of oral hypoglycemic drugs; Z86.718 Personal history of other venous thrombosis and embolism; Z89.611 Acquired absence of right leg above knee; Z89.612 Acquired absence of left leg above knee
CPT/HCPCS: 10040